=== PATIENT | female | born 1950 | race African-American/Black ===

== ENCOUNTER → 2025-05-26 | Day surgery (SDC) | payer MEDICARE ==
[2025-05-23 10:56] LABS: BASOPHILS % 1.3 % (0.0-1.0); EOSINOPHILS % 4.8 % (0.0-6.0); LYMPHOCYTES % 39.0 % (18.0-39.1); MONOCYTES % 10.8 % (4.4-11.3); NEUTROPHILS % 43.8 % (38.7-80.0); RED CELL DISTRIBUTION WIDTH 13.6 % (11.7-14.4)
[2025-05-23 11:27] LABS: EST GLOMERULAR FILTRATION RATE 89.0 ML/MIN (>=60)
[~2025-05-26] MED LIST: AMILORIDE HCL-1 EACH PO; ASPIRIN81 MG PO; CALCITRIOL0.25 MCG PO; CYCLOPENTOLATE HCL 2% OPTH SOLN 2 ML BTL OP ONE; FOLIC ACID0.4 MG PO; GATIFLOXACIN(OPTH) 5 ML LIQD ONE; LACTATED RINGER'S 1,000 ML ONE; LIDOCAINE HCL 2% LOCAL INJ 5 ML SDV VIAL INJ ONE; LISINOPRIL10 MG PO; MULTI-VITAMIN1 EACH PO; PHENYLEPHRINE HCL 2 ML DROPS ONE; PROPOFOL IV EMULSION 10 MG/ML 20 ML VIAL ONE
[2025-05-26 12:40] VITALS: BP 154/89; PULSE 65; RESP 16; TEMP 97.6; O2SAT 99
== END | disposition home or self-care (01) ==
LOC: OR 06:44 → EDSEX 11:00
PROVIDERS: ATTEND Ophthalmology
DX: H25.12 Age-related nuclear cataract, left eye (principal); I10 Essential (primary) hypertension; R42 Dizziness and giddiness; F17.200 Nicotine dependence, unspecified, uncomplicated; Z01.810 Encounter for preprocedural cardiovascular examination; Z01.812 Encounter for preprocedural laboratory examination; Z79.82 Long term (current) use of aspirin; Z79.899 Other long term (current) drug therapy
CPT/HCPCS: 36415; 66984; 80048; 85025; 93005; J2003; J2704; J7121; V2632